=== PATIENT | female | born 1945 | race African-American/Black ===

== ENCOUNTER 2020-09-10 05:55 | Inpatient (IN) | payer MEDICARE, MEDICAID, OTHER ==
[2020-09-10 07:48] LABS: Anion Gap 19 mmol/L (10-20); BUN (Urea Nitrogen) 21 mg/dL (9.8-20.1); Calc. Creatinine Clearance 0 mL/min (70-130); Calcium 9.1 mg/dL (7.8-10.44); Carbon Dioxide 22 mmol/L (23-31); Chloride 107 mmol/L (98-107); Estimated GFR-MDRD 12; Glucose 73 mg/dL (83-110); Potassium 6.5 mmol/L (3.5-5.1); Sodium 141 mmol/L (136-145)
--- NOTE | 2020-09-10 08:25 | RAD ---
Portable frontal chest radiograph: 09/10/2020 COMPARISON: 07/27/2020 HISTORY: Dislodged dialysis catheter FINDINGS: The right dialysis catheter present on the prior examination has completely retracted proxi elier, distal tip overlying the soft tissues in the right supraclavicular region. Heart and mediastinal contours are stable. No pneumothorax, pleural fluid, lobar consolidation, or alveolar primo ma. IMPRESSION: Retracted right dialysis catheter overlying the soft tissues in the left supraclavicular region.
[2020-09-10] MEDS ORDERED: Dextrose 50% Abboject 50 ML SYRINGE ONE ×2 (08:27→12:24)
[2020-09-10] MEDS ORDERED: Insulin Regular 300 UNITS/3 ML VIAL ONE (08:27)
[2020-09-10] MEDS ORDERED: Calcium Chloride 1 GM/10 ML Abboject SYRINGE ONE (08:27)
[2020-09-10 09:22] LABS: INR-International Normal Ratio 1.1; PTT 33.5 sec (22.9-36.1); Prothrombin Time 13.9 sec (12.0-14.7)
[2020-09-10 09:29] LABS: #Eosinphils 0.2 thou/uL (0.0-0.7); #Lymphocytes 1.4 thou/uL (1.20-3.40); #Monocytes 0.9 thou/uL (0.11-0.59); #Neutrophils 3.6 thou/uL (1.40-6.50); %Basophils 0.5 % (0.0-1.0); %Eosinophils 3.3 % (0.0-10.0); %Lymphocytes 22.8 % (21.0-51.0); %Monocytes 14.7 % (0.0-10.0); %Neutrophils 58.7 % (42.0-75.0); Mean Corpuscular HGB CONC 31.5 g/dL (32.0-36.0); Mean Corpuscular Hemoglobin 31.3 pg (27.0-31.0); Mean Corpuscular Volume 99.2 fL (78.0-98.0); Mean Platelet Volume 7.8 fL (7.4-10.4); Platelet Count 226 thou/uL (130-400); RBC Distribution Width 16.6 % (11.5-14.5); Red Blood Cell (RBC) Count 3.85 mill/uL (4.20-5.40); White Blood Cell (WBC) Count 6.1 thou/uL (4.8-10.8)
[2020-09-10 10:22] LABS: SARS-CoV-2 NAA Rapid Test DETECTED (NotDetected)
--- NOTE | 2020-09-10 10:39 | CON ---
DATE OF CONSULTATION: HISTORY OF PRESENT ILLNESS: Santa Brumfield is a 74-year-old female long-term patient, removed her right IJ cuffed tunneled dialysis catheter today. Her potassium was high at 6.5. She was treated medically for this. Repeat electrolytes are pending. She dialyzes Monday, , and Monday. Today is her dialysis day. I have been asked to see her regarding this. Apparently, this hemodialysis catheter was placed during recent hospitalization in July where she was seen by Dr. Briseno and Dr. Mclean. Dr. Mclean on 07/23/2020 placed the tunneled dialysis catheter. Dr. Russell prior to that on 07/18/2020 placed a right femoral Trialysis catheter. Dr. Mclean on 07/23/2020 placed a central line and left IJ. The patient is demented. Resident of [facility] with past history of dementia, neurosyphilis, seizure disorder, apparently having had a DVT, on Eliquis in the past. She is sent from long-term this morning as a result of her catheter being removed. CURRENT MEDICATIONS: 1. Phenytoin. 2. Ferrous sulfate. 3. Tylenol. 4. Multivitamins. 5. Timoptic eyedrops. 6. Has been on Eliquis in the past. We will have to verify that she is not on this anymore. . 7. Florastor. SOCIAL HISTORY: Tobacco unknown. Alcohol unknown. PAST MEDICAL AND SURGICAL HISTORY: As above. PHYSICAL EXAMINATION: VITAL SIGNS: Heart rate 86, blood pressure 114/68, temperature 98 degrees, respiratory rate 18. HEAD, EARS, EYES, NOSE AND THROAT: Unremarkable. LUNGS: Clear to auscultation. CARDIAC: Regular rate and rhythm. No murmur or gallop. ABDOMEN: Soft, obese. EXTREMITIES: Unremarkable. Palpable radial pulses. LABORATORY DATA: Rapid COVID tests pending today. Previous COVID test negative on 07/17/2020. Sodium 141, potassium 6.5, CO2 of 22. Hemoglobin A1c 4.9 in July. White count 6 and hemoglobin 12. ASSESSMENT AND PLAN: 1. End-stage renal disease, placing her hypertensive nephropathy. Plan to replace her dislodged hemodialysis catheter. We will obtain consent from family. 2. Dementia. 3. We will need more definitive access. We will obtain ultrasound vein mapping in both arms. We will plan placement of hemodialysis catheter today and more likely a definitive fistula graft in the next day or two. 4. History of being on Eliquis. We need to verify that she is not on this anymore. Job ID: [id number]
[2020-09-10] MEDS ORDERED: Acetaminophen 325 MG TAB PO PRN (10:44)
[2020-09-10] MEDS ORDERED: Ondansetron PF 4 MG/2 ML Vial IVP PRN (10:44)
[2020-09-10] MEDS ORDERED: Acetaminophen 650 MG Suppository PR PRN (10:44)
[2020-09-10] MEDS ORDERED: Calcium Carbonate 500 MG ChewTAB PO PRN (10:44)
[2020-09-10] MEDS ORDERED: Ondansetron ODT 4 MG TAB PO PRN (10:44)
[2020-09-10] MEDS ORDERED: Rocuronium Bromide 10 MG/ML (10ML VIAL) ONE (10:52)
[2020-09-10] MEDS ORDERED: Ondansetron PF 4 MG/2 ML Vial ONE (10:52)
[2020-09-10] MEDS ORDERED: Lidocaine 1% PF 5 ML VIAL ONE (10:52)
[2020-09-10] MEDS ORDERED: PHENYLEPHRINE-NS 100 MCG/ML 10 ML SYRINGE ONE (10:52)
[2020-09-10] MEDS ORDERED: PROPOFOL 200 MG/20 ML VIAL ONE (10:52)
[2020-09-10] MEDS ORDERED: EPHEDRINE 25 MG/5 ML SYRINGE ONE (10:52)
--- NOTE | 2020-09-10 10:54 | PDOC.FPRHP ---
- History of Present Illness Chief Complaint: Displaced HD catheter History of Present Illness: 74yo [facility] resident with severe dementia, ESRD on HD, seizure disorder who presents due to displaced HD catheter. Patient is nonverbal thus all history obtained from ERMD/staff and HF staff. Patient was being picked up from [place] for routine HD when they noticed her right HD catheter was displaced, brought to ED. No other concerns or complaints reported. ED Course: EKG with mildly peaked T waves, normal QT, no ST/T wave changes. Given 10u Novolin R, 1 amp D50, 1g CaCl. Dr. Mack called from ED. - Allergies/Adverse Reactions Allergies Allergy/AdvReac Type Severity Reaction Status Date / Time No Known Drug Allergies Allergy Verified 07/18/20 06:53 - Home Medications Medication Instructions Recorded Confirmed Type Acetaminophen 325 mg PO DAILY 07/20/20 09/10/20 History Apixaban [Eliquis] 1 tab PO BID 07/20/20 09/10/20 History Cetirizine HCl [Zyrtec] 10 mg PO HS 07/20/20 09/10/20 History Ferrous Gluconate 324 mg PO BID 07/20/20 09/10/20 History Fluticasone Propionate [Flonase 1 spray NASAL DAILY 07/20/20 09/10/20 History Nasal [place]] Multivitamin With Minerals 1 tab PO DAILY 07/20/20 09/10/20 History [Multivitamins with Minerals] Phenytoin 100 mg PO BID 07/20/20 09/10/20 History Timolol [Betimol 0.5% Ophth 1 drop EA EYE DAILY 07/20/20 09/10/20 History Solution] Calcitriol [Rocaltrol] 0.25 mcg PO DAILY 30 Days #30 cap 07/30/20 09/10/20 Rx Epoetin Noe-Epbx [Retacrit] 10,000 unit SC Q7D vial 07/30/20 09/10/20 Rx Ergocalciferol [Drisdol] 1.25 mg PO Q7DAYS cap 07/30/20 09/10/20 Rx Midodrine HCl [ProAmatine] 5 mg PO BID tab 07/30/20 09/10/20 Rx Saccharomyces boulardii [Florastor] 250 mg PO DAILY 30 Days #30 cap 07/30/20 09/10/20 Rx - History PMHx:Severe dementia, neurosyphilis, HTn, GERD, CKD4 on HD, seizure disorder PSHx: Unknown due to dementia FHx: Uknown due to dementia Social: Unknown due to dementia - Review of Systems ROS unobtainable: due to mental status (severe dementia, unable to obtain) - Vital signs BP: 172/88 HR: 86 RR: 22 Tmax: 98.2 Pox: 100% on RA Wt: 100kg - Physical Exam Constitutional: NAD, other (non verbal) HEENT: PERRLA, EOMI, conjunctiva clear, MMM Neck: supple, trachea midline Chest: other (Wound from displaced dialysis catheter hemostatic, no erythema/drainage) Heart: RRR, normal S1/S2, no edema, other (2/6 CRISTY) Lungs: CTAB, no respiratory distress, good air movement, no rales/rhonchi, no wheezing Abdomen: soft, non-tender, bowel sounds present Musculoskeletal: other (BL amputation of all toes) Skin: no rash/lesions FMR H&P: Results - Labs Result Diagrams: 09/10/20 08:55 09/10/20 06:59 Lab results: WBC 6.1 thou/uL (4.8-10.8) 09/10/20 08:55 Hgb 12.0 g/dL (12.0-16.0) 09/10/20 08:55 Hct 38.2 % (36.0-47.0) 09/10/20 08:55 MCV 99.2 fL (78.0-98.0) H 09/10/20 08:55 Plt Count 226 thou/uL (130-400) 09/10/20 08:55 Neutrophils % 58.7 % (42.0-75.0) 09/10/20 08:55 Sodium 141 mmol/L (136-145) 09/10/20 06:59 Potassium 6.5 mmol/L (3.5-5.1) H 09/10/20 06:59 Chloride 107 mmol/L (98-107) 09/10/20 06:59 Carbon Dioxide 22 mmol/L (23-31) L 09/10/20 06:59 BUN 21 mg/dL (9.8-20.1) H 09/10/20 06:59 Creatinine 4.49 mg/dL (0.6-1.1) H 09/10/20 06:59 Glucose 73 mg/dL (83-110) L 09/10/20 06:59 Calcium 9.1 mg/dL (7.8-10.44) 09/10/20 06:59 - EKG Interpretation EKG: NSR. No acute T wave or ST changes. Normal Intervals. Slight peaked T waves in lateral leads. - Radiology Interpretation Chest x-ray Status: report reviewed by me (Dislodged R dialysis cath) FMR H&P: A/P - Problem List (1) Hyperkalemia Current Visit: Yes Status: Acute Code(s): E87.5 - HYPERKALEMIA (2) ESRD (end stage renal disease) on dialysis Current Visit: Yes Status: Chronic Code(s): N18.6 - END STAGE RENAL DISEASE; Z99.2 - DEPENDENCE ON RENAL DIALYSIS (3) Dementia Current Visit: No Status: Chronic Code(s): F03.90 - UNSPECIFIED DEMENTIA W ITHOUT BEHAVIORAL DISTURBANCE Qualifiers: Dementia type: associated with other underlying disease Dementia behavioral disturbance: without behavioral disturbance Qualified Code(s): F02.80 - Dementia in other diseases classified elsewhere without behavioral disturbance (4) HTN (hypertension) Current Visit: Yes Status: Chronic Code(s): I10 - ESSENTIAL (PRIMARY) HYPERTENSION Qualifiers: Hypertension type: essential hypertension Qualified Code(s): I10 - Essen tial (primary) hypertension (5) Neurosyphilis in adult Current Visit: No Status: Chronic Code(s): A52.3 - NEUROSYPHILIS, UNSPECIFIED (6) Seizure disorder Current Visit: No Status: Chronic Code(s): G40.909 - EPILEPSY, UNSP, NOT INTRACTABLE, WITHOUT STATUS EPILEPTICUS - Plan 74yo [facility] resident with severe dementia, ESRD on HD, seizure disorder who presents due to displaced HD catheter. #ESRD on HD, displaced dialysis catheter - Known to Dr. Briseno, consulted for HD after dialysis catheter placement, apprec assistance - Dr. Mack consulted from ED, plan to replace HD catheter today - Dr. Mack spoke with family, still deciding if they want to continue long- term dialysis. Will reach back out once family decision is made to either proceed with venous maping for fistula placement vs transition to hospice care - Consulted Palliative for assistance with family goals of care #Hyperkalemia - secondary to above, given Insulin, D50, CaCl in ED - Will monitor on tele - HD after catheter placement #H/o LE DVT - On eliquis, holding for catheter placement, consider restarting after #Severe dementia - nonverbal #Seizure disorder - history of neurosyphillis - continue home meds PCP: Taylor SARKAR IVF: SL VTE: Lovenox - On eliquis at home, holding for surgical procedure at this time Diet: NPO for catheter placement Disposition/LOS: Admit to tele. Dr. Mack to place HD cather. Dr. Briseno to arrange HD after. Family decision on senior living dialysis vs hospice care, awaiting decision. FMR H&P: Upper Level - Plan Date/Time: 09/10/20 1052 I, [], have evaluated this patient and agree with findings/plan as outlined by actuarial intern resident. Pertinent changes/additions are listed here.
[2020-09-10] MEDS ORDERED: Lidocaine 2% PF 5 ML VIAL ONE ×2 (11:00→13:36)
[2020-09-10] MEDS ORDERED: Heparin 10,000 UNITS/ 10 ML VIAL ONE ×3 (11:00→14:42)
[2020-09-10] MEDS ORDERED: Sodium Chloride 0.9% 0 ML ONE (11:00)
[2020-09-10] MEDS ORDERED: Bupivacaine HCl 0.5%/Epinephrine 1:200,000/PF 30 ml Vial ONE (11:00)
[2020-09-10 11:51] LABS: ALT (SGPT) 12 U/L (8-55); AST (SGOT) 16 U/L (5-34); Albumin 2.9 g/dL (3.4-4.8); Alkaline Phosphatase 124 U/L (40-110); Anion Gap 12 mmol/L (10-20); BUN (Urea Nitrogen) 20 mg/dL (9.8-20.1); Bilirubin, Total 0.2 mg/dL (0.2-1.2); Calc. Creatinine Clearance 0 mL/min (70-130); Calcium 9.3 mg/dL (7.8-10.44); Carbon Dioxide 23 mmol/L (23-31); Chloride 111 mmol/L (98-107); Estimated GFR-MDRD 12; Globulin 5.2 g/dL (2.4-3.5); Protein, Total 8.1 g/dL (6.0-8.3); Sodium 142 mmol/L (136-145)
[2020-09-10 12:10] LABS: Glucose 53 mg/dL (83-110)
--- NOTE | 2020-09-10 12:59 | CON ---
DATE OF CONSULTATION: 09/10/2020 REASON FOR CONSULTATION: Hyperkalemia. HISTORY OF PRESENT ILLNESS: This 74-year-old female presented to the hospital after her catheter was displaced. The patient can give no further history. Denies any nausea, vomiting, or chest pain. PAST MEDICAL HISTORY: Significant for; 1. Hypertension. 2. Anemia. 3. Dementia. 4. Neurosyphilis. 5. Chronic kidney disease stage 6. SOCIAL HISTORY: The patient has had seizure disorder. Also, has a tunneled dialysis catheter and AV fistula surgery. SOCIOECONOMIC HISTORY: No alcohol or drug use. FAMILY HISTORY: Negative for ESRD. ALLERGIES: REVIEWED. HOME MEDICATIONS: List reviewed. HOSPITAL MEDICATIONS: List reviewed. REVIEW OF SYSTEMS: Unobtainable. PHYSICAL EXAMINATION: GENERAL: The patient is awake, alert. VITAL SIGNS: Afebrile. Pulse 82, breathing 16, blood pressure 172/82. HEENT: Head normocephalic and atraumatic. Eyes intact, no ulcers. Nose intact, no ulcers. Ears intact, no ulcers. NECK: Supple. No JVD. CHEST: Symmetrical and clear. CARDIOVASCULAR: Shows S1 and S2, no rub, no murmur. GASTROINTESTINAL: Abdomen is soft, bowel sounds positive. EXTREMITIES: Show no edema or ulcers. SKIN: Shows no rash or petechiae. MUSCULOSKELETAL: Shows no joint swelling or stiffness. GENITOURINARY: Shows no Santiago or CVA tenderness. NEUROLOGIC: The patient is demented. LABORATORY DATA: Labs showed potassium 6.5. ASSESSMENT AND PLAN: 1. Stage 6 chronic kidney disease with hyperkalemia. Plan stat dialysis. Surgery consult appreciated. 2. Anemia, stable. 3. Medication based on GFR appropriate. Risks versus benefits of dialysis were discussed and no dialysis was offered but the family wants dialysis done. I have advised that the patient pulling out the catheter would be medical concern, so the patient will decide after dialysis today whether to continue dialysis. Again, I have advised the family that prognosis is poor and she should have a sitter present, so that she does not pull catheter. Job ID: [id number]
[2020-09-10] MEDS ORDERED: Fentanyl 100 MCG/2 ML VIAL ONE ×2 (13:32→15:13)
[2020-09-10] MEDS ORDERED: Bupivacaine/Epinephrine 0.25% 30 ML VIAL ONE (13:36)
[2020-09-10] MEDS ORDERED: Sodium Chloride 0.9% 30 ML ONE (13:36)
[2020-09-10] MEDS ORDERED: CEFAZOLIN 2 GM in Premix Bag 1 BAG IVPB SCH (13:45)
[2020-09-10] MEDS ORDERED: SUGAMMADEX SODIUM 200 MG/2 ML VIAL ONE ×2 (14:16→15:18)
[2020-09-10] MEDS ORDERED: Promethazine HCl 25 MG/ML VIAL ONE (15:13)
[2020-09-10] MEDS ORDERED: Promethazine HCl 25 MG/ML VIAL SLOW IVP PRN (15:40)
[2020-09-10] MEDS ORDERED: Ondansetron HCl/PF 4 MG/2 ML Vial IVP PRN (15:40)
[2020-09-10] MEDS ORDERED: Promethazine HCl 25 MG/ML VIAL IM PRN (15:40)
--- NOTE | 2020-09-10 15:47 | RAD ---
EXAM: Single view of the chest HISTORY: Dialysis catheter placement COMPARISON: 09/10/2020 FINDINGS: Single view of the chest shows an enlarged but stable cardiomediastinal silhouette. The di alysis catheter has been replaced with its tip in the superior vena cava. No pneumothorax is seen. Opacity in the left lung base may represent atelectasis or an infiltrate. No acute osseous abnormalit y. IMPRESSION: 1. Status post dialysis catheter placement without evidence of complication 2. Left basilar atelectasis versus infiltrate
[2020-09-10 16:44] VITALS: BMI 32.1
--- NOTE | 2020-09-10 19:39 | OP ---
DATE OF PROCEDURE: 09/10/2020 PREOPERATIVE DIAGNOSES: End-stage renal disease, dementia, she has pulled out her tunneled dialysis catheter, and hyperkalemia. POSTOPERATIVE DIAGNOSES: End-stage renal disease, dementia, she has pulled out her tunneled dialysis catheter, and hyperkalemia. PROCEDURES PERFORMED: Right IJ cuffed tunneled dialysis catheter. ANESTHESIA: General, local 0.5% Marcaine with epinephrine. DESCRIPTION OF PROCEDURE: The patient was taken to the operating room where under general anesthesia, neck and chest were prepared with ChloraPrep and draped in routine fashion. Local anesthetic was infiltrated in the skin and subcutaneous tissue about the operative site. Using ultrasound guidance, the right internal jugular vein was cannulated with a trocar catheter, J-wire threaded, trocar catheter removed. Skin site enlarged sharply, stab incision made in the right chest. Tunneling device used to tunnel the pre-curved [employer] cuffed tunneled hemodialysis catheter and placed the fabric cuff beneath the skin and catheter secured with interrupted sutures of 2-0 Prolene. Small and medium size dilators placed over the J-wire and into the internal jugular vein and removed. Dilator and Peel-Away sheath placed over the IJ into the superior vena cava and dilator and J-wire were removed. Catheter placed through the Peel-Away sheath. Peel-Away sheath removed. Platysma was approximated with 4-0 Monocryl, skin with subdermal 4-0 Monocryl and [place] glue applied. The patient tolerated the procedure well without complications. Each port aspirated blood, flushed with saline solution and heparinized saline solution 1000 units of heparin per mL, indicating volume in the port. Fluoroscopic images revealed good line placement. Job ID: [id number]
[2020-09-10] MEDS: Loratadine 10 MG TAB PO SCH (21:54)
[2020-09-10] MEDS: Apixaban 5 MG TAB PO SCH (21:54)
[2020-09-10] MEDS: Phenytoin 50 MG Chewable Tablet PO SCH (21:54)
[2020-09-11 01:49] LABS: Anion Gap 16 mmol/L (10-20); BUN (Urea Nitrogen) 7 mg/dL (9.8-20.1); Calc. Creatinine Clearance 29 mL/min (70-130); Calcium 8.4 mg/dL (7.8-10.44); Carbon Dioxide 24 mmol/L (23-31); Chloride 100 mmol/L (98-107); Estimated GFR-MDRD 22; Glucose 90 mg/dL (83-110); Magnesium 1.8 mg/dL (1.6-2.6); Phosphorus 3.4 mg/dL (2.3-4.7); Potassium 4.1 mmol/L (3.5-5.1); Sodium 136 mmol/L (136-145)
[2020-09-11 01:54] LABS: Troponin I 0.022 ng/mL (< 0.028)
--- NOTE | 2020-09-11 01:57 | PDOC.BPN ---
- Brief Progress Note Encounter Date: 09/11/20 Encounter Time: 01:50 Notified by nursing staff. Patient has had repeated 3-5 second pauses. Stat labs and EKG orderd and pending. She is currently full code though it seems there has been consideration of hospice care. Tried to contact family for status update and to discuss code status and unable to reach, voicemail was full. Rectal temp 93, anitra hugger being requested now. Transfer orders to ICU placed.
[2020-09-11] MEDS: Multivitamin W/ Minerals 1 TAB PO SCH (08:24)
[2020-09-11] MEDS: Apixaban 5 MG TAB PO SCH ×2 (08:24→20:10)
[2020-09-11] MEDS: Acetaminophen 325 MG TAB PO SCH ×2 (08:24→08:25)
[2020-09-11] MEDS: Phenytoin 50 MG Chewable Tablet PO SCH ×2 (08:29→20:10)
--- NOTE | 2020-09-11 08:34 | PDOC.FM ---
- Subjective Subjective: Overnight had events of sinus pauses, hypothermia, and hypotension following dialysis. Was subsequently transferred to the ICU for closer monitoring. Overnight BP has been stable, no further events, Temperature improved on bear- hugged. This morning patient does say a few words and states she is hungry and wants to go home. - Objective MAR Reviewed: Yes Vital Signs & Weight: Vital Signs (12 hours) Temp Pulse Resp BP Pulse Ox 09/11/20 06:00 97.5 F L 09/11/20 03:00 92.7 F L 97 09/11/20 02:11 93.7 F L 72 18 85/66 L 99 09/11/20 00:00 96.8 F L 77 18 122/69 97 Weight Weight 95.935 kg Most Recent Monitor Data Heart Rate from ECG 92 NIBP 97/51 NIBP BP-Mean 66 Respiration from ECG 21 SpO2 96 I&O: 09/10/20 09/11/20 09/12/20 06:59 06:59 06:59 Intake Total 950 Output Total 275 Balance 675 Result Diagrams: 09/10/20 08:55 09/11/20 01:22 Phys Exam - Physical Examination Constitutional: NAD (resting comfortably, nods yes and no to some questions, will say a few words) HEENT: moist MMs Neck: supple Respiratory: no wheezing, no rales, no rhonchi, clear to auscultation bilateral Cardiovascular: RRR, no significant murmur Gastrointestinal: soft, non-tender, no distention, positive bowel sounds Musculoskeletal: no edema Dx/Plan (1) Hyperkalemia Code(s): E87.5 - HYPERKALEMIA Status: Acute (2) ESRD (end stage renal disease) on dialysis Code(s): N18.6 - END STAGE RENAL DISEASE; Z99.2 - DEPENDENCE ON RENAL DIALYSIS Status: Chronic (3) Dementia Code(s): F03.90 - UNSPECIFIED DEMENTIA WITHOUT BEHAVIORAL DISTURBANCE Status: Chronic Qualifiers: Dementia type: associated with other underlying disease Dementia behavioral disturbance: without behavioral disturbance Qualified Code(s): F02.80 - Dementia in other diseases classified elsewhere without behavioral disturbance (4) HTN (hypertension) Code(s): I10 - ESSENTIAL (PRIMARY) HYPERTENSION Status: Chronic Qualifiers: Hypertension type: essential hypertension Qualified Code(s): I10 - [place]ia l (primary) hypertension (5) Neurosyphilis in adult Code(s): A52.3 - NEUROSYPHILIS, UNSPECIFIED Status: Chronic (6) Seizure disorder Code(s): G40.909 - EPILEPSY, UNSP, NOT INTRACTABLE, WITHOUT STATUS EPILEPTICUS Status: Chronic - Plan Plan: 74yo [facility] resident with severe dementia, ESRD on HD, seizure disorder who presents due to displaced HD catheter. #ESRD on HD, displaced dialysis catheter - Known to Dr. Briseno, HD last night, apprec assistance - Dr. Mack consulted from ED, replaced right-sided dialysis cath - Dr. Mack spoke with family, still deciding if they want to continue long- term dialysis. Will reach back out once family decision is made to either proceed with venous maping for fistula placement vs transition to hospice care. - Consulted Palliative for assistance with family goals of care #Sinus pauses, hypotension, hypothermia, resolved - overnight after HD - Improved now, giving midodrine home med - continue to monitor #COVID-19 Positive - Present at admission - Asx, cont to monitor #Hyperkalemia, resolved - secondary to above, given Insulin, D50, CaCl in ED in ED. Subsequent hy poglycemia corrected with D50 and now stable - corrected with HD #H/o LE DVT - On eliquis #Severe dementia - minimally verbal this morning #Seizure disorder - history of neurosyphillis - continue home meds [facility] V[facility]: Eli[facility] Diet: HH Disposition/LOS: S/p HD catheter placement and HD. Sinus pauses, hypotension, and hypothermia overnight, likely secondary to not getting meds. Stable, will transfer back to floor today and speak with family regarding goals of care and transition back to the [place].
--- NOTE | 2020-09-11 08:38 | CON ---
DATE OF CONSULTATION: 09/11/2020 REASON FOR CONSULTATION: ICU stay. HISTORY OF PRESENT ILLNESS: The patient is a 75-year-old female who was brought into the ER after having a displaced dialysis catheter. She incidentally has positive COVID-19 tests. I am not sure about any previous history of COVID-19 in this patient. The patient cannot give much in the way of history as she is aphasic. PAST MEDICAL HISTORY: 1. Dementia. 2. Neurosyphilis. 3. Chronic kidney disease, stage 4. 4. Hypertension. 5. Seizure disorder. 6. Also worry about previous stroke given her aphasic state. PAST SURGICAL HISTORY: She has had a dialysis catheter placed. FAMILY MEDICAL HISTORY: Unknown. ALLERGIES: NONE. SOCIAL HISTORY: No alcohol or drug use. MEDICATIONS: Prior to admission; 1. Eliquis. 2. Cefazolin. 3. Fluticasone. 4. Loratadine. 5. . 6. Dilantin. 7. Timolol eye drops. Current inpatient medications reviewed. See chart. PHYSICAL EXAMINATION: VITAL SIGNS: Temperature 97.5, pulse 92, blood pressure 97/51, O2 saturation 96%. GENERAL: She is awake. She will groan when she has tried to answer in the affirmative. HEENT: Unremarkable. NECK: No JVD. CHEST: She has a right-sided tunneled dialysis catheter. LUNGS: Clear. CARDIAC: S1, S2 regular. ABDOMEN: Soft and nontender. EXTREMITIES: No clubbing, cyanosis, or edema. LABORATORY DATA: White blood cell count 6.1, hematocrit 38.2, and platelet count 226. INR 1.1. Sodium 136, potassium 4.1, chloride 100, CO2 of 24, BUN 7, creatinine 2.4, glucose 8.4. COVID serology is positive. There have been no inflammatory markers drawn on this patient. Chest x-ray shows no mass, effusion, or infiltrate. ASSESSMENT: 1. Status post transient hypotension which seems to be resolved. 2. Resolved hypothermia. 3. COVID-19 infection - not sure what stage she is in. PLAN: I will ask for set of inflammatory markers. If she is late in the course of disease, then she will probably not progress. If she is early in the disease, then she may have trouble later on. She is stable for transfer to the floor. Job ID: [id number]
[2020-09-11 08:42] LABS: Hemoglobin 9.5 g/dL (12.0-16.0); Mean Corpuscular HGB CONC 31.4 g/dL (32.0-36.0); Mean Corpuscular Hemoglobin 31.7 pg (27.0-31.0); Mean Platelet Volume 7.4 fL (7.4-10.4); Platelet Count 162 thou/uL (130-400); RBC Distribution Width 16.1 % (11.5-14.5); Red Blood Cell (RBC) Count 2.99 mill/uL (4.20-5.40); White Blood Cell (WBC) Count 4.5 thou/uL (4.8-10.8)
[2020-09-11] MEDS ORDERED: FLU VACC QS2020-21(65YR UP)/PF 240 MCG/0.7 ML SYRINGE IM ONE (09:00)
[2020-09-11] MEDS: Fluticasone Propionate Nasal Spray 16 gm Bottle NASAL SCH (09:13)
[2020-09-11] MEDS: Timolol 0.5% Ophth Soln 5 ml Bottle EA EYE SCH (09:14)
[2020-09-11] MEDS: Midodrine HCl 5 MG TAB PO SCH ×2 (09:15→20:10)
[2020-09-11 10:09] LABS: Band 1 % (5-11); Eosinophils 2 % (0-10); Hypochromia SLIGHT = 6-15 cells (100X) (0-5/hpf); Lymphocytes 15 % (21-51); MDiff Complete? YES; Macrocytosis SLIGHT = 6-15 cells (100X) (0-5/hpf); Monocytes 14 % (0-10); Neutrophil 68 % (42-75); Platelet Morphology Comment Appears Adequate; Polychromasia SLIGHT = 2-3 cells (100X) (0-2/hpf)
--- NOTE | 2020-09-11 10:10 | PDOC.BPN ---
- Brief Progress Note Encounter Date: 09/11/20 Encounter Time: 10:08 Spoke with Daughter this morning, updated on overnight events and current state as well as COVID Positive. Patient is asymptomatic from COVID, VSS. She appears at baseline this morning. No additional cardiac events or hypotensive episodes. Restarted home meds for BP support. Temperature improved. Appears stable for discharge back to OR when accepted. Will transfer to floor in meantime. Daughter states the family is discussing code status, currently still full code, may transition to DNI in future but no decision at this time. Also still discussing long-term dialysis plans. Palliative care consulted. Daughter dispo plan is for her to go back to OR. Case Management updated this morning. Will begin discharge to OR process.
[2020-09-11] MEDS ORDERED: Midodrine HCl 5 MG TAB PO SCH (12:45)
[2020-09-11 13:06] LABS: SARS-CoV-2 IgG Ab Reactive (NonReactive); SARS-CoV-2 IgG Index 3.39 S/CO (< 1.40)
[2020-09-11] MEDS: Loratadine 10 MG TAB PO SCH (20:10)
--- NOTE | 2020-09-12 05:50 | PDOC.FM ---
- Subjective Subjective: Stable this morning. Overnight still with 2 sinus pauses. Team spoke with daughter yesterday evening, changed to DNR code status, want to hear from cardiology but unlikely to proceed with pacemaker or aggressive interventions. Considering transition to hospice care. This morning, patient resting comfortably, no nursing concerns. - Objective MAR Reviewed: Yes Vital Signs & Weight: Vital Signs (12 hours) Temp Pulse Resp BP Pulse Ox 09/12/20 04:13 97.7 F 82 20 129/76 99 09/12/20 00:00 117/59 L 98 09/11/20 21:56 97.8 F 76 16 110/81 100 09/11/20 20:00 96.5 F L 96 Weight Weight 97.749 kg Most Recent Monitor Data Heart Rate from ECG 76 NIBP 108/59 NIBP BP-Mean 75 Respiration from ECG 29 SpO2 97 I&O: 09/10/20 09/11/20 09/12/20 06:59 06:59 06:59 Intake Total 950 400 Output Total 275 100 Balance 675 300 Result Diagrams: 09/11/20 07:55 09/11/20 01:22 EKG Reviewed by me: Yes (Tele: 2 sinus pauses) Phys Exam - Physical Examination Constitutional: NAD (resting comfortably, minimally verbal) HEENT: moist MMs Neck: supple Respiratory: no wheezing, no rales, no rhonchi, clear to auscultation bilateral Cardiovascular: RRR, no significant murmur Gastrointestinal: soft, non-tender, no distention, positive bowel sounds Deviation from normal: Minimally verbal, says only 1-2 words Dx/Plan (1) Hyperkalemia Code(s): E87.5 - HYPERKALEMIA Status: Acute (2) ESRD (end stage renal disease) on dialysis Code(s): N18.6 - END STAGE RENAL DISEASE; Z99.2 - DEPENDENCE ON RENAL DIALYSIS Status: Chronic (3) Dementia Code(s): F03.90 - UNSPECIFIED DEMENTIA WITHOUT BEHAVIORAL DISTURBANCE Status: Chronic Qualifiers: Dementia type: associated with other underlying disease Dementia behavioral disturbance: without behavioral disturbance Qualified Code(s): F02.80 - Dementia in other diseases classified elsewhere without behavioral disturbance (4) HTN (hypertension) Code(s): I10 - ESSENTIAL (PRIMARY) HYPERTENSION Status: Chronic Qualifiers: Hypertension type: essential hypertension Qualified Code(s): I10 - Essential (primary) hypertension (5) Neurosyphilis in adult Code(s): A52.3 - NEUROSYPHILIS, UNSPECIFIED Status: Chronic (6) Seizure disorder Code(s): G40.909 - EPILEPSY, UNSP, NOT INTRACTABLE, WITHOUT STATUS EPILEPTICUS Status: Chronic - Plan Plan: 74yo [facility] resident with severe dementia, ESRD on HD, seizure disorder who presents due to displaced HD catheter. #ESRD on HD, displaced dialysis catheter - Known to Dr. Briseno, HD PM, apprec assistance - Dr. Mack consulted from ED, replaced right-sided dialysis cath - Dr. Mack spoke with family, still deciding if they want to continue long- term dialysis. Will reach back out once family decision is made to either proceed with venous maping for fistula placement vs transition to hospice care. Family considering hospice care. - Consulted Palliative for assistance with family goals of care #Sinus pauses, hypotension, hypothermia, resolved - AFter HD on day of admission, improved now and on home midodrine - Family spoken with, changed to DNR status and likely transitioning to hospice care but want to hear from cardiology, consulted, apprec recs #COVID-19 Positive - Present at admission - Asx, cont to monitor. Antibody positive, possibly later in course of illness #Hyperkalemia, resolved - secondary to missed HD, given Insulin, D50, CaCl in ED in ED. Subsequent hy poglycemia corrected with D50 and now stable - corrected with HD #H/o LE DVT - On eliquis #Severe dementia - minimally verbal #Seizure disorder - history of neurosyphillis - continue home meds PCP: [facility] IVF: SL VTE: Eliquis Diet: HH Disposition/LOS: S/p HD catheter placement and HD. Sinus pauses, hypotension, and hypothermia events, likely secondary to not getting home meds and progression of chronic diseases. Team spoke with daughter, DNR status, likely transition to hospice care but wants opinion from cardiology, apprec assistance. If cleared by cards, stable for discharge to hospice should family choose.
[2020-09-12] MEDS: Apixaban 5 MG TAB PO SCH ×2 (08:59→22:11)
[2020-09-12] MEDS: Fluticasone Propionate Nasal Spray 16 gm Bottle NASAL SCH (09:00)
[2020-09-12] MEDS: Acetaminophen 325 MG TAB PO SCH (09:00)
[2020-09-12] MEDS: Midodrine HCl 5 MG TAB PO SCH ×2 (09:00→22:10)
[2020-09-12] MEDS: Timolol 0.5% Ophth Soln 5 ml Bottle EA EYE SCH (09:03)
[2020-09-12] MEDS: Phenytoin 50 MG Chewable Tablet PO SCH ×2 (09:03→22:10)
--- NOTE | 2020-09-12 10:16 | PRG ---
DATE OF SERVICE: 09/12/2020 SUBJECTIVE: A 75-year-old female being seen for end-stage kidney disease. The patient is demented. OBJECTIVE: GENERAL: The patient is resting. VITAL SIGNS: Afebrile. Pulse 72, breathing 16, blood pressure 129/76. HEENT: Head normocephalic and atraumatic. Eyes intact, no ulcers. Nose intact, no ulcers. Ears intact, no ulcers. NECK: Supple. No JVD. CHEST: Symmetrical and clear. CARDIOVASCULAR: Shows S1 and S2, no rub, no murmur. GASTROINTESTINAL: Abdomen is soft, bowel sounds positive. EXTREMITIES: Show no edema or ulcers. SKIN: Shows no rash or petechiae. MUSCULOSKELETAL: Shows no joint swelling or stiffness. GENITOURINARY: Shows no Santiago or CVA tenderness. NEUROLOGIC: The patient is demented. LABORATORY DATA: Reviewed. ASSESSMENT AND PLAN: 1. Stage 6 chronic kidney disease. Continue hemodialysis . 2. Anemia, stable. 3. Medication based on GFR appropriate. Job ID: [id number]
[2020-09-12 12:34] LABS: Anion Gap 11 mmol/L (10-20); BUN (Urea Nitrogen) 24 mg/dL (9.8-20.1); Calc. Creatinine Clearance 16 mL/min (70-130); Calcium 8.4 mg/dL (7.8-10.44); Carbon Dioxide 29 mmol/L (23-31); Chloride 103 mmol/L (98-107); Estimated GFR-MDRD 11; Glucose 90 mg/dL (83-110); Potassium 4.3 mmol/L (3.5-5.1); Sodium 139 mmol/L (136-145)
--- NOTE | 2020-09-12 13:49 | CON ---
DATE OF CONSULTATION: 09/12/2020 REASON FOR CONSULTATION: Sinus pauses. HISTORY OF PRESENT ILLNESS: Mrs. Brumfield is a female who comes to the hospital for displaced hemodialysis catheter. She resides at [facility]. She has severe dementia as well as end-stage renal disease, on hemodialysis, and she had a catheter placed through which she was receiving HD and due to her dementia and inability to follow commands, she pulled it out and was transferred here for placement of a new catheter. She was placed on the telemetry floor and on the telemetry monitoring, it was noted that she was having about 4-1/2-second pauses with high-degree AV block and nonconducted P waves, so Cardiology is being consulted for this. From my evaluation, Mrs. Brumfield has not had any syncopal spells. However, she is mostly bed ridden and she is severely demented and unable to follow commands and is nonverbal. PAST MEDICAL HISTORY: 1. End-stage dementia. 2. End-stage renal disease, on hemodialysis. 3. Seizure disorder. 4. Neurosyphilis. 5. Hypertension. 6. GERD. 7. History of DVT, on Eliquis. 8. History of sepsis due to UTI and Escherichia coli. OUTPATIENT MEDICATIONS: Per chart review. 1. Ferrous gluconate. 2. Ergocalciferol. 3. Epoetin trino. 4. Zyrtec. 5. Calcitriol. 6. Eliquis 5 mg b.i.d. 7. Acetaminophen p.r.n. 8. Timolol one drop in each eye daily. 9. Florastor. 10. Phenytoin 100 mg b.i.d. 11. Multivitamin daily. 12. Midodrine 5 mg b.i.d. 13. Fluticasone nasal spray. ALLERGIES: NO KNOWN DRUG ALLERGIES. REVIEW OF SYSTEMS: Unobtainable as the patient is nonverbal. PHYSICAL EXAMINATION: VITAL SIGNS: Temperature 98.3, pulse 70, respiratory rate 18, saturating 96% on room air, and blood pressure 120/60. GENERAL: Nonverbal. HEENT: Normocephalic. NECK: Supple. LUNGS: Clear. CARDIOVASCULAR: S1, S2. ABDOMEN: Soft. EXTREMITIES: No edema. SKIN: Warm and dry. LABORATORY DATA: Laboratory work was reviewed. White count of 6.1, hemoglobin of 12 and has dropped from admission of 12, now to 9.5, platelet count of 162. Coags were reviewed. Chemistries were unremarkable except for rise in creatinine. Troponin was normal. CRP was 3.3 and a ferritin of 539. COVID-19 PCR was positive and IgG antibody was reactive and an index of 3.39. Telemetry monitoring was reviewed. EKGs were reviewed. ASSESSMENT: 1. High-degree atrioventricular block. 2. COVID-19 acute infection. 3. History of Escherichia coli bacteremia and urinary tract infections. 4. End-stage dementia. 5. End-stage renal disease, on hemodialysis. PLAN: 1. At this point, it is unclear whether she had these episodes of high-degree AV block during sleep as she is nonverbal and is difficult to assess if she is sleeping or if she is closing her eyes. Regardless, she is having 4-1/2-second pauses, which is significant and in a different setting, she would be a candidate for pacemaker. At this point, because of an acute infection, we would not place a pacemaker right now. We would have to wait for COVID infection to be done with, not only that, she has end-stage dementia and it would be very hard for her to be able to follow instructions after the procedure to minimize the risk of complications. At this time, it is my professional opinion that she would that the risk of a pacemaker would outweigh the benefits, and I would feel that she would be high risk for a procedure such as a pacemaker insertion given her severe dementia. Also quality of life would not be significantly affected with the pacemaker except if there is a complication, then her quality of life would actually go down. I spoke with Mrs. Brumfield' daughter at length about the situation, and she is very reasonable and she tells me that she will talk with her family about the possibility of this pacemaker and how they would like to proceed. 2. Currently, Mrs. Brumfield is DNR/DNI. Thank you for letting us to participate in the care of your patient. We will await family's decision. We will follow. Job ID: [id number]
[2020-09-12] MEDS: Loratadine 10 MG TAB PO SCH (22:11)
--- NOTE | 2020-09-13 06:04 | PDOC.FM ---
- Subjective Subjective: Stable this morning. Minimally verbal. Had a 4.5 sec pause overnight. Unable to express symptoms. Family still discussing goals of care and considering hospice. - Objective MAR Reviewed: Yes Vital Signs & Weight: Vital Signs (12 hours) Temp Pulse Resp BP Pulse Ox 09/13/20 03:40 97 F L 82 18 141/89 H 98 09/12/20 22:15 97.5 F L 88 24 H 124/79 98 Weight Weight 97.704 kg Most Recent Monitor Data Heart Rate from ECG 76 NIBP 108/59 NIBP BP-Mean 75 Respiration from ECG 29 SpO2 97 I&O: 09/11/20 09/12/20 09/13/20 06:59 06:59 06:59 Intake Total 950 400 480 Output Total 275 100 225 Balance 675 300 255 Result Diagrams: 09/11/20 07:55 09/12/20 11:58 EKG Reviewed by me: Yes (Tele: 4.5 sec pause) Phys Exam - Physical Examination Constitutional: NAD (comfortably, minimally verbal) HEENT: moist MMs Neck: supple Respiratory: no wheezing, no rales, no rhonchi, clear to auscultation bilateral Cardiovascular: RRR Gastrointestinal: soft, non-tender, no distention, positive bowel sounds Musculoskeletal: no edema Dx/Plan (1) Hyperkalemia Code(s): E87.5 - HYPERKALEMIA Status: Acute (2) ESRD (end stage renal disease) on dialysis Code(s): N18.6 - END STAGE RENAL DISEASE; Z99.2 - DEPENDENCE ON RENAL DIALYSIS Status: Chronic (3) Dementia Code(s): F03.90 - UNSPECIFIED DEMENTIA WITHOUT BEHAVIORAL DISTURBANCE Status: Chronic Qualifiers: Dementia type: associated with other underlying disease Dementia behavioral disturbance: without behavioral disturbance Qualified Code(s): F02.80 - Dementia in other diseases classified elsewhere without behavioral disturbance (4) HTN (hypertension) Code(s): I10 - ESSENTIAL (PRIMARY) HYPERTENSION Status: Chronic Qualifiers: Hypertension type: essential hypertension Qualified Code(s): I10 - Essential (primary) hypertension (5) Neurosyphilis in adult Code(s): A52.3 - NEUROSYPHILIS, UNSPECIFIED Status: Chronic (6) Seizure disorder Code(s): G40.909 - EPILEPSY, UNSP, NOT INTRACTABLE, WITHOUT STATUS EPILEPTICUS Status: Chronic - Plan Plan: 74yo [facility] resident with severe dementia, ESRD on HD, seizure disorder who presented due to displaced HD catheter found to have AV block. #High Degree AV Block - Patient unable to provide symptoms - Dr. Franco, cardiology, consulted, apprec recs - consideration of pacemaker however due to chronic medical conditions, risks appears to outweight benefit - Family discussing recommendations, considering aggressive therapy vs hospice, will await family decision. #ESRD on HD, displaced dialysis catheter - Known to Dr. Briseno, NATHANIEL PM, apprec assistance - Dr. Mack consulted from ED, replaced right-sided dialysis cath - Dr. Mack spoke with family, still deciding if they want to continue long- term dialysis. Will reach back out once family decision is made to either proceed with venous maping for fistula placement vs transition to hospice care. Family considering hospice care. - Consulted Palliative for assistance with family goals of care #COVID-19 Positive - Present at admission - Asx, cont to monitor. Antibody positive, possibly later in course of illness #Hyperkalemia, resolved - secondary to missed HD, given Insulin, D50, CaCl in ED in ED. Subsequent hypoglycemia corrected with D50 and now stable - corrected with HD #H/o LE DVT - On eliquis #Severe dementia/neurosyphilis - minimally verbal #Seizure disorder - history of neuro yphilis - continue home meds PCP: [facility] IVF: SL VTE: Eliquis Diet: HH Disposition/LOS: S/p HD catheter placement and HD. High degree AV block found on tele monitoring. Cards consulted. Discussed risks and benefits of pacemaker with family and stated risks appear to outweigh benefits. Family deciding on goals of care and considering hospice. Will await family decision.
--- NOTE | 2020-09-13 06:53 | PRG ---
DATE OF SERVICE: 09/11/2020 SUBJECTIVE: This patient has dementia and is resting. PHYSICAL EXAMINATION: General: The patient is resting. Vital Signs: Afebrile, pulse 94, breathing 16, blood pressure 97/51. HEENT: Head normocephalic and atraumatic. Eyes intact, no ulcers. Nose intact, no ulcers. Ears intact, no ulcers. Neck: Supple. No JVD. Chest: Symmetrical and clear. Cardiovascular: Shows S1 and S2, no rub, no murmur. Gastrointestinal: Abdomen is soft, bowel sounds positive. Extremities: Show no edema or ulcers. Skin: Shows no rash or petechiae. Musculoskeletal: Shows no joint swelling or stiffness. Genitourinary: Shows no Santiago or CVA tenderness. Neurologic: The patient is demented. LAB: Hemoglobin 9.5. Potassium was 4.1. IMPRESSION: 1. Stage 6 chronic kidney disease. No indication for dialysis today. 2. Hypertension, stable. 3. Anemia, stable. 4. Dementia. Overall prognosis is poor. I will discuss dialysis issues with family. Job ID: [id number]
[2020-09-13] MEDS: Acetaminophen 325 MG TAB PO SCH (09:12)
[2020-09-13] MEDS: Apixaban 5 MG TAB PO SCH ×2 (09:12→19:41)
[2020-09-13] MEDS: Midodrine HCl 5 MG TAB PO SCH ×2 (09:12→19:41)
[2020-09-13] MEDS: Multivitamin W/ Minerals 1 TAB PO SCH (09:12)
[2020-09-13] MEDS: Phenytoin 50 MG Chewable Tablet PO SCH ×2 (09:13→19:40)
[2020-09-13] MEDS: Timolol 0.5% Ophth Soln 5 ml Bottle EA EYE SCH (09:43)
[2020-09-13] MEDS: Fluticasone Propionate Nasal Spray 16 gm Bottle NASAL SCH (09:43)
--- NOTE | 2020-09-13 13:30 | PRG ---
DATE OF SERVICE: 09/13/2020 SUBJECTIVE: A 75-year-old female being seen for end-stage renal disease. The patient remained nonverbal. PHYSICAL EXAMINATION: GENERAL: The patient is resting. VITAL SIGNS: Afebrile, pulse 88, breathing at 16, blood pressure 124/79. HEENT: Head normocephalic and atraumatic. Eyes intact, no ulcers. Nose intact, no ulcers. Ears intact, no ulcers. NECK: Supple. No JVD. CHEST: Symmetrical and clear. CARDIOVASCULAR: Shows S1 and S2, no rub, no murmur. GASTROINTESTINAL: Abdomen is soft, bowel sounds positive. EXTREMITIES: Show no edema or ulcers. SKIN: Shows no rash or petechiae. MUSCULOSKELETAL: Shows no joint swelling or stiffness. GENITOURINARY: Shows no Santiago or CVA tenderness. NEUROLOGIC: The patient is demented. LABORATORY DATA: Labs show potassium 4.3. ASSESSMENT AND PLAN: 1. Stage 6 chronic kidney disease. Plan dialysis per family. Overall prognosis is poor. 2. Hypertension. 3. Anemia, stable. Job ID: [id number]
[2020-09-13] MEDS: Loratadine 10 MG TAB PO SCH (19:41)
[2020-09-14 05:47] LABS: Anion Gap 16 mmol/L (10-20); BUN (Urea Nitrogen) 35 mg/dL (9.8-20.1); Calc. Creatinine Clearance 14 mL/min (70-130); Calcium 8.4 mg/dL (7.8-10.44); Carbon Dioxide 25 mmol/L (23-31); Chloride 108 mmol/L (98-107); Estimated GFR-MDRD 9; Glucose 68 mg/dL (83-110); Potassium 5.5 mmol/L (3.5-5.1); Sodium 143 mmol/L (136-145)
--- NOTE | 2020-09-14 07:06 | PDOC.FM ---
- Subjective Subjective: Stable this morning. No acute events overnight, no pauses on tele. This morning states she is not in pain and wants to go home with yes or no questioning. Family still deciding on goals of care. - Objective MAR Reviewed: Yes Vital Signs & Weight: Vital Signs (12 hours) Temp Pulse Resp BP Pulse Ox 09/14/20 05:00 98.2 F 69 17 121/64 98 09/13/20 23:22 97.8 F 70 20 131/68 100 09/13/20 19:50 97.7 F 69 17 114/59 L 100 Weight Weight 97.704 kg Most Recent Monitor Data Heart Rate from ECG 76 NIBP 108/59 NIBP BP-Mean 75 Respiration from ECG 29 SpO2 97 I&O: 09/13/20 09/14/20 09/15/20 06:59 06:59 06:59 Intake Total 480 670 Output Total 225 970 Balance 255 -300 Result Diagrams: 09/11/20 07:55 09/14/20 04:22 EKG Reviewed by me: Yes (Tele: Sinus, no acute events) Phys Exam - Physical Examination Constitutional: NAD (resting comfortably, nods to yes or no questions) HEENT: moist MMs Neck: supple Respiratory: no wheezing, no rales, no rhonchi, clear to auscultation bilateral Cardiovascular: RRR Gastrointestinal: soft, non-tender, no distention, positive bowel sounds Musculoskeletal: no edema BL complete metatarsal amputations Deviation from normal: minimally verbal Dx/Plan (1) Hyperkalemia Code(s): E87.5 - HYPERKALEMIA Status: Acute (2) ESRD (end stage renal disease) on dialysis Code(s): N18.6 - END STAGE RENAL DISEASE; Z99.2 - DEPENDENCE ON RENAL DIALYSIS Status: Chronic (3) Dementia Code(s): F03.90 - UNSPECIFIED DEMENTIA WITHOUT BEHAVIORAL DISTURBANCE Status: Chronic Qualifiers: Dementia type: associated with other underlying disease Dementia behavioral disturbance: without behavioral disturbance Qualified Code(s): F02.80 - Dementia in other diseases classified elsewhere without behavioral disturbance (4) HTN (hypertension) Code(s): I10 - ESSENTIAL (PRIMARY) HYPERTENSION Status: Chronic Qualifiers: Hypertension type: essential hypertension Qualified Code(s): I10 - Essential (primary) hypertension (5) Neurosyphilis in adult Code(s): A52.3 - NEUROSYPHILIS, UNSPECIFIED Status: Chronic (6) Seizure disorder Code(s): G40.909 - EPILEPSY, UNSP, NOT INTRACTABLE, WITHOUT STATUS EPILEPTICUS Status: Chronic - Plan Plan: 74yo [facility] resident with severe dementia, ESRD on HD, seizure disorder who presented due to displaced HD catheter found to have AV block. #High Degree AV Block - Patient unable to provide symptoms - Dr. Franco, cardiology, consulted, apprec recs - consideration of pacemaker however due to chronic medical conditions, risks appears to outweigh benefit - Family discussing recommendations, considering aggressive therapy vs hospice, stable to discharge back to OR if no pacemaker desired while family determines fpc goals of care #ESRD on HD, displaced dialysis catheter - Known to Dr. Briseno, NATHANIEL PM, apprec assistance - Dr. Mack consulted from ED, replaced right-sided dialysis cath - Dr. Mack spoke with family, still deciding if they want to continue long- term dialysis. Will reach back out once family decision is made to either proceed with venous maping for fistula placement vs transition to hospice care. Family considering hospice care. - Consulted Palliative for assistance with family goals of care and out of hospital DNR #COVID-19 Positive - Present at admission - Asx, cont to monitor. Antibody positive, possibly later in course of illness #Hyperkalemia, resolved - secondary to missed HD, given Insulin, D50, CaCl in ED in ED. Subsequent hypoglycemia corrected with D50 and now stable - corrected with HD #H/o LE DVT - On eliquis #Severe dementia/neurosyphilis - minimally verbal #Seizure disorder - history of neuro yphilis - continue home meds PCP: [facility] IVF: SL VTE: Eliquis Diet: HH Disposition/LOS: S/p HD catheter placement and HD. High degree AV block found on tele monitoring. Cards consulted. Discussed risks and benefits of pacemaker with family and stated risks appear to outweigh benefits. Family deciding on goals of care and considering hospice. Stable for discharge back to OR if family needs more time to make medical terminologist goals of care decisions. Addendum - Attending - Attending Attestation Date/Time: 09/14/20 1664 I personally evaluated the patient and discussed the management with Dr. Harmon. I agree with the History, Examination, Assessment and Plan documented above with any addition or exceptions noted below.
[2020-09-14] MEDS: Acetaminophen 325 MG TAB PO SCH (09:01)
[2020-09-14] MEDS: Multivitamin W/ Minerals 1 TAB PO SCH (09:01)
[2020-09-14] MEDS: Phenytoin 50 MG Chewable Tablet PO SCH ×2 (09:01→19:48)
[2020-09-14] MEDS: Fluticasone Propionate Nasal Spray 16 gm Bottle NASAL SCH (09:01)
[2020-09-14] MEDS: Midodrine HCl 5 MG TAB PO SCH ×2 (09:01→19:48)
[2020-09-14] MEDS: Apixaban 5 MG TAB PO SCH ×2 (09:01→19:48)
[2020-09-14] MEDS: Timolol 0.5% Ophth Soln 5 ml Bottle EA EYE SCH (09:02)
--- NOTE | 2020-09-14 12:02 | PRG ---
DATE OF SERVICE: 09/14/2020 SUBJECTIVE: Patient was seen and examined at bedside and overnight events noted. Patient denies any shortness of breath or chest pain or palpitation. No history of nausea or vomiting or diarrhea or fever or chills or cramps. OBJECTIVE: General: This is a well-built female, in no apparent distress. VITAL SIGNS: Temperature , heart rate 71, respiratory rate 18, and blood pressure 132/77. HEENT: Atraumatic, normocephalic. Oral mucosa is moist. NECK: Supple. CARDIOVASCULAR: S1, S2 heard. Rate and rhythm regular. RESPIRATORY: Clear to auscultation. GASTROINTESTINAL: Abdomen is soft. MUSCULOSKELETAL: No tenderness. No edema. DERMATOLOGIC: No skin rash. NEUROLOGIC: Alert and awake and oriented x3. No focal neurologic deficits. Moving all the extremities. PSYCHIATRIC: Mood and affect normal. LABORATORY DATA: Potassium 5.5, BUN is 35, and creatinine is 5.4. ASSESSMENT AND PLAN: 1. End-stage renal disease. We will have dialysis for 2 hours for hyperkalemia. 2. Edema, controlled. 3. Hypertension. 4. Anemia of chronic disease. 5. Hyperkalemia, will have dialysis. Plan to have dialysis for 2 hours, then continue dialysis TTS as tolerated. Job ID: [id number]
--- NOTE | 2020-09-14 14:29 | PDOC.FMACP ---
Advance Care Planning - Problem (1) Palliative care encounter Status: Acute Code(s): Z51.5 - ENCOUNTER FOR PALLIATIVE CARE (2) ESRD (end stage renal disease) on dialysis Status: Chronic Code(s): N18.6 - END STAGE RENAL DISEASE; Z99.2 - DEPENDENCE ON RENAL DIALYSIS (3) HTN (hypertension) Status: Chronic Code(s): I10 - ESSENTIAL (PRIMARY) HYPERTENSION Qualifiers: Hypertension type: essential hypertension Qualified Code(s): I10 - Essential (primary) hypertension (4) Anemia Status: Chronic Code(s): D64.9 - ANEMIA, UNSPECIFIED (5) Dementia Status: Chronic Code(s): F03.90 - UNSPECIFIED DEMENTIA WITHOUT BEHAVIORAL DISTURBANCE Qualifiers: Dementia type: associated with other underlying disease Dementia behavioral disturbance: without behavioral disturbance Qualified Code(s): F02.80 - Dementia in other diseases classified elsewhere without behavioral disturbance - Note Participants: family, palliative care Summary: Palliative Care discussed Advanced Care Planning, opportunity to decline. The diagnosis, prognosis and goals of care were discussed. Appropriate forms and documentation to accomplish the goals of care were discussed. All questions were answered. Daughter confirmed DNAR and desired to complete an OOHDNAR for the patient. Palliative Care discussed Goal of Care, patient will transition back to skilled setting, and continue dialysis. Teaching in relation to disease progression. Discussed overlay of hospice with continued decline. Please also refer to Palliative care notes in note section. Time Spent (mins): 15
[2020-09-14] MEDS: Loratadine 10 MG TAB PO SCH (19:48)
--- NOTE | 2020-09-15 03:34 | DIS ---
DATE OF ADMISSION: 09/10/2020 DATE OF DISCHARGE: 09/14/2020 RESIDENT: Rodrigo Harmon MD ADMITTING ATTENDING: Tj Dey MD DISCHARGE ATTENDING: Roberth Redd MD CONSULTS: 1. General Surgery, Dr. Mack. 2. Nephrology, Dr. Briseno. 3. Palliative Care. PROCEDURES: 1. Placement of right IJ cuffed tunneled dialysis catheter on 09/10/[address] Mack. 2. Chest x-ray on 09/10/2020, demonstrating retracted right dialysis catheter overlying the soft tissue in the left supraclavicular region. 3. Chest x-ray on 09/10/2020, demonstrating status post dialysis catheter placement without evidence of complication and a left basilar atelectasis versus infiltrate. PRIMARY DIAGNOSES: 1. High-degree AV block. 2. End-stage renal disease, on hemodialysis with displaced dialysis catheter, status post replacement and continued on hemodialysis. 3. Asymptomatic COVID-19 positive. SECONDARY DIAGNOSES: 1. Hyperkalemia, resolved. 2. History of lower extremity DVT. 3. Severe dementia/neurosyphilis. 4. Seizure disorder. DISCHARGE MEDICATIONS: 1. Zyrtec 10 mg p.o. at bedtime. 2. Timolol eyedrops one drop each eye daily. 3. Multivitamin one tablet p.o. daily. 4. Ferrous gluconate 324 mg p.o. b.i.d. 5. Eliquis 5 mg one tablet p.o. b.i.d. 6. Tylenol 325 mg p.o. daily. 7. Phenytoin 100 mg p.o. b.i.d. 8. Flonase 1 spray nasally daily. 9. Calcitriol 0.25 mcg p.o. daily. 10. Epoetin injection subcutaneously q.7 days. 11. Ergocalciferol 1.25 mg p.o. q.7 days. 12. Midodrine 5 mg p.o. b.i.d. 13. Florastor 250 mg p.o. daily. DISCONTINUED MEDICATIONS: None. HISTORY OF PRESENT ILLNESS AND HOSPITAL COURSE: The patient is a 75-year-old female who currently lives at [facility] with severe dementia; end-stage renal disease, on hemodialysis; and history of neurosyphilis, who presented to the emergency department due to displaced dialysis catheter. [facility] and was found to have a displaced catheter and thus was transferred to the emergency room for placement and continued hemodialysis. At presentation, she appeared at her baseline. Vitals were otherwise stable and Dr. Mack was consulted from the emergency department who came and evaluated the patient and stated that he would replace the dialysis catheter. A discussion was had with the family prior to placement of the dialysis catheter and it was discussed that their wishes were to continue dialysis and at this time they wish to proceed. A rapid COVID test was positive prior to surgery. However, the patient appeared to be asymptomatic. The patient tolerated the surgery well and dialysis catheter was placed and then the patient was continued on dialysis for her hyperkalemia. Nephrology was consulted to assist. On the first day of hospitalization, the patient had an episode of hypotension, hypothermia, and sinus pauses on telemetry and thus was transferred to the [facility]. She was observed overnight and had resolution of her hypotension and hypothermia. This is likely secondary to her missing medications after dialysis and the patient was found to have a high-degree AV block. Cardiology was consulted, who stated that the patient would benefit from a pacemaker. However, due to the patient's current COVID-19 positive status as well as her chronic medical conditions and current state, they stated that the risk of pacemaker placement would outweigh the benefits. A discussion was had with the daughter regarding the risks and benefits of pacemaker placement. Ultimately, the family discussion was had to proceed with a DNR status for the patient and to not to proceed with any further cardiac intervention at this time. Palliative care was consulted who provided information to the daughter. Ultimately it was decided to proceed with [facility]osp[facility] care at the [facility] but to also continue with dialysis at this time. Case management helped with arrangement of services Patient continued to receive dialysis in the hospital and arrangements for outpatient dialysis were made. At the time of discharge, the patient was stable and appeared at her baseline. She was minimally verbal, resting comfortably with vital signs stable. The discharge plan was discussed with daughter over the phone, who voiced agreement and understanding and wished for the patient to be discharged back to [facility]. All questions were answered. DISPOSITION: Stable. DISCHARGE INSTRUCTIONS: 1. Location: [facility]. 2. Diet: Consistent carb, renal high-protein. 3. Activity: As tolerated. 4. Followup: The patient is to follow up with the primary care physician within one week of discharge. Patient to continue on dialysis on Monday, , and Monday as directed by her emergency crew supervisor. Job ID: [id number] MTDD
[2020-09-15] MEDS ORDERED: Heparin 10,000 UNITS/ 10 ML VIAL ONE (09:37)
[2020-09-15] MEDS: Acetaminophen 325 MG TAB PO SCH (10:13)
[2020-09-15] MEDS: Phenytoin 50 MG Chewable Tablet PO SCH ×2 (10:13→20:38)
[2020-09-15] MEDS: Multivitamin W/ Minerals 1 TAB PO SCH (10:14)
[2020-09-15] MEDS: Apixaban 5 MG TAB PO SCH ×2 (10:14→20:39)
[2020-09-15] MEDS: Midodrine HCl 5 MG TAB PO SCH ×2 (10:14→20:39)
[2020-09-15] MEDS: Timolol 0.5% Ophth Soln 5 ml Bottle EA EYE SCH (10:19)
[2020-09-15] MEDS: Fluticasone Propionate Nasal Spray 16 gm Bottle NASAL SCH (10:19)
--- NOTE | 2020-09-15 12:01 | PRG ---
DATE OF SERVICE: 09/15/2020 SUBJECTIVE: Patient was seen and examined at bedside and overnight events noted. Patient denies any shortness of breath or chest pain or palpitation. No history of nausea or vomiting or diarrhea or fever or chills or cramps. OBJECTIVE: GENERAL: This is well-built female in no apparent distress. VITAL SIGNS: Temperature 98.1. Heart Rate 76. Respiratory rate 20. Blood pressure 120/60. HEENT: Atraumatic, normocephalic. Oral mucosa is moist. NECK: Supple. CARDIOVASCULAR: S1, S2 heard. Rate and rhythm regular. RESPIRATORY: Clear to auscultation. GASTROINTESTINAL: Abdomen is soft. MUSCULOSKELETAL: No tenderness. No edema. DERMATOLOGIC: No skin rash. NEUROLOGIC: Alert and awake and oriented x3. No focal neurologic deficits. Moving all the extremities. PSYCHIATRIC: Mood and affect normal. LABORATORY DATA: No labs done today. ASSESSMENT AND PLAN: 1. End-stage renal disease. Continue dialysis as tolerated. 2. Hyperkalemia. Limit potassium intake. 3. Edema. 4. Hypertension. 5. Anemia of chronic disease. Plan to have dialysis as tolerated and continue dialysis TTS as tolerated. Job ID: [id number]
[2020-09-15 18:37] VITALS: TEMP 98.3
[2020-09-15 22:16] VITALS: BP 98/57
--- NOTE | 2020-09-16 08:14 | EKG ---
Test Reason : Blood Pressure : / mmHG Vent. Rate : 072 BPM Atrial Rate : 072 BPM P-R Int : 198 ms QRS Dur : 104 ms QT Int : 424 ms P-R-T Axes : 058 052 066 degrees QTc Int : 464 ms Normal sinus rhythm Normal ECG When compared with ECG of 10-SEP-2020 08:13, (Unconfirmed) No significant change was found Confirmed by ANTONIO BHAKTA (2) on 09/16/2020 8:13:56 AM Referred By: MIGUEL Confirmed By:ANTONIO BHAKTA
[2020-09-16] MEDS ORDERED: Loratadine 10 MG TAB PO SCH (09:00)
== END 2020-09-15 22:07 | DRG 673 ==
LOC: ERS 05:55 → 2SE 09:18 → CCU 09-11 01:49 → 2SW 09-11 22:24
PROVIDERS: ADMIT Family Medicine; ATTEND Family Medicine
PROC: 0JH60XZ Insertion of Tunneled Vascular Access Device into Chest Subcutaneous Tissue and Fascia, Open Approach (ICD-10-PCS; principal; 2020-09-10)
PROC: 02HV33Z Insertion of Infusion Device into Superior Vena Cava, Percutaneous Approach (ICD-10-PCS; 2020-09-10)
PROC: B518ZZA Fluoroscopy of Superior Vena Cava, Guidance (ICD-10-PCS; 2020-09-10)
PROC: B548ZZA Ultrasonography of Superior Vena Cava, Guidance (ICD-10-PCS; 2020-09-10)
PROC: 5A1D70Z Performance of Urinary Filtration, Intermittent, Less than 6 Hours Per Day (ICD-10-PCS; 2020-09-10)
DX: T82.42XA Displacement of vascular dialysis catheter, initial encounter (principal); N18.6 End stage renal disease; U07.1 COVID-19; A52.3 Neurosyphilis, unspecified; I12.0 Hypertensive chronic kidney disease with stage 5 chronic kidney disease or end stage renal disease; I44.2 Atrioventricular block, complete; Z66 Do not resuscitate; Z51.5 Encounter for palliative care; Y84.1 Kidney dialysis as the cause of abnormal reaction of the patient, or of later complication, without mention of misadventure at the time of the procedure; F03.90 Unspecified dementia, unspecified severity, without behavioral disturbance, psychotic disturbance, mood disturbance, and anxiety; E87.5 Hyperkalemia; G40.909 Epilepsy, unspecified, not intractable, without status epilepticus; D63.1 Anemia in chronic kidney disease; K21.9 Gastro-esophageal reflux disease without esophagitis; H40.9 Unspecified glaucoma; R68.0 Hypothermia, not associated with low environmental temperature; I95.3 Hypotension of hemodialysis; Z79.899 Other long term (current) drug therapy; Z99.2 Dependence on renal dialysis; Z86.718 Personal history of other venous thrombosis and embolism; Z79.01 Long term (current) use of anticoagulants; Z87.440 Personal history of urinary (tract) infections
CPT/HCPCS: 36415; 36416; 71045; 80048; 82728; 83735; 83880; 84100; 84484; 85025; 85610; 85730; 86140; 86769; 90935; 93005; 93010; 94760; 96374; 96375; C1752; G0257; J0690; J1644; J1815; J2001; J2405; J2550; J2704; J3010; U0002

== ENCOUNTER 2020-09-17 13:46 | Emergency (ER) | payer MEDICARE, MEDICAID ==
--- NOTE | 2020-09-17 16:47 | RAD ---
XR Chest 1 View Portable HISTORY: Shortness of breath COMPARISON: 09/10/2020 FINDINGS: The heart size is normal. Right-sided dialysis catheter remains in place. The lungs are wel l expanded without focal areas of consolidation, pneumothorax or pleural effusions. IMPRESSION: No radiographic evidence of acute cardiopulmonary process.
[2020-09-17 16:50] LABS: Hemoglobin 10.8 g/dL (12.0-16.0); Mean Corpuscular HGB CONC 31.2 g/dL (32.0-36.0); Mean Corpuscular Hemoglobin 31.7 pg (27.0-31.0); Mean Platelet Volume 7.6 fL (7.4-10.4); Platelet Count 143 thou/uL (130-400); RBC Distribution Width 15.8 % (11.5-14.5); Red Blood Cell (RBC) Count 3.41 mill/uL (4.20-5.40); White Blood Cell (WBC) Count 5.5 thou/uL (4.8-10.8)
[2020-09-17 17:18] LABS: Band 4 % (5-11); Eosinophils 10 % (0-10); Lymphocytes 23 % (21-51); MDiff Complete? YES; Macrocytosis SLIGHT = 6-15 cells (100X) (0-5/hpf); Monocytes 3 % (0-10); Neutrophil 57 % (42-75); Platelet Morphology Comment Appears Adequate; Reactive Lymphocytes 2 % (0-10); Target Cells SLIGHT = 2-5 cells (100X) (0-1/hpf)
[2020-09-17 17:25] LABS: ALT (SGPT) 8 U/L (8-55); AST (SGOT) 20 U/L (5-34); Alkaline Phosphatase 125 U/L (40-110); Anion Gap 15 mmol/L (10-20); BUN (Urea Nitrogen) 20 mg/dL (9.8-20.1); Bilirubin, Total Less than 0.2 mg/dL (0.2-1.2); Calc. Creatinine Clearance 0 mL/min (70-130); Calcium 8.6 mg/dL (7.8-10.44); Carbon Dioxide 24 mmol/L (23-31); Chloride 105 mmol/L (98-107); Estimated GFR-MDRD 14; Globulin 5.7 g/dL (2.4-3.5); Glucose 79 mg/dL (83-110); Potassium 3.9 mmol/L (3.5-5.1); Protein, Total 8.7 g/dL (6.0-8.3); Sodium 140 mmol/L (136-145)
== END 2020-09-17 22:10 ==
LOC: ERS 13:46
DX: U07.1 COVID-19 (principal); I12.9 Hypertensive chronic kidney disease with stage 1 through stage 4 chronic kidney disease, or unspecified chronic kidney disease; N18.9 Chronic kidney disease, unspecified; Z91.15 Patient's noncompliance with renal dialysis; K21.9 Gastro-esophageal reflux disease without esophagitis; D64.9 Anemia, unspecified; Z79.01 Long term (current) use of anticoagulants; Z79.899 Other long term (current) drug therapy
CPT/HCPCS: 36415; 71045; 80053; 85025; 93005